=== PATIENT | female | born 2000 | race Caucasian/White ===

== ENCOUNTER 2024-02-24 09:04 | Emergency (ER) | payer OTHER ==
[~2024-02-24] VITALS: Ht 160 cm; Wt 54.4 kg
[~2024-02-24 09:04] MED LIST: IBUP-2218 PO
[2024-02-24 09:12] VITALS: BP 146/95; PULSE 98; RESP 16; TEMP 97.5; O2SAT 100
[2024-02-24 10:15] VITALS: BP 110/77; PULSE 83; RESP 12; O2SAT 100
== END 2024-02-24 10:15 | disposition home or self-care (01) ==
LOC: MED 09:04
DX: F41.1 Generalized anxiety disorder (principal); R07.89 Other chest pain; R03.0 Elevated blood-pressure reading, without diagnosis of hypertension; E78.5 Hyperlipidemia, unspecified; Z79.1 Long term (current) use of non-steroidal anti-inflammatories (NSAID)
CPT/HCPCS: 93005; 99283